=== PATIENT | male | born 1930 | race Caucasian/White ===

== ENCOUNTER 2018-05-17 11:39 | Inpatient (IN) ==
[2018-05-17 12:17] LABS: Basophils % 0.5 % (0.0-0.8); Eosinophils # 0.2 10*3/uL (0.0-0.87); Eosinophils % 3.4 % (0.00-10.9); Hematocrit 34.9 VOL% (42.0-52.0); Hemoglobin 11.6 GM/DL (14.0-18.0); Immature Granulocytes % 0.3 %; Immature Granulocytes Absolute 0.02 #; Lymphocytes # 1.5 10*3/uL (1.4-4.0); Lymphocytes % 24.8 % (21.2-54.2); Mean Corpuscular HGB Conc 33.2 GM/DL (32-36); Mean Corpuscular Hemoglobin 36 PG (27-34); Mean Corpuscular Volume 108.4 FL (87-102); Mean Platelet Volume 9.8 FL (9.6-12.0); Monocytes # 0.5 10*3/uL (0.11-0.8); Monocytes % 8.4 % (1.7-12.7); Neutrophils # 3.9 10*3/uL (1.4-7.4); Neutrophils % 62.6 % (38.7-73.9); Platelet Count 106 T/CUMM (130-400); Red Blood Count 3.22 MC/CUMM (3.8-5.5); Red Cell Distribution Width 13.1 % (9.3-17.3); White Blood Count 6.2 T/CUMM (4-12)
[2018-05-17 12:24] LABS: Partial Thromboplastin Time 38.7 SECS (0-40)
[2018-05-17 12:29] LABS: INR 2.2
[2018-05-17 12:31] LABS: PT Patient Result 22.6 SECS
[2018-05-17 12:32] LABS: Apearance,Urine Slightly Hazy (Clear); Bacteria,Urine Occasional /HPF (Few); Bilirubin,Urine Negative (Negative); Blood, Urine Large mg/dL (Negative); Glucose,Urine (UA) Negative (Negative); Ketones,Urine Negative (Negative); Nitrite,Urine Positive (Negative); Protein,Urine Negative; RBC,Urine 77 /HPF (0-4); Squamous Epithelial Cell,Urine Occasional /HPF (0-10); Urine Color Yellow (Yellow); Urine Specific Gravity 1.008 (1.001-1.035); Urine Urobilinogen < 2.0 EU/DL (0.2-1.0); WBC,Urine 304 /HPF (0-6)
[2018-05-17 12:35] LABS: Alanine Aminotransferase 15 U/L (16-61); Alkaline Phosphatase 74 U/L (45-117); Aspartate Amino Transferase 14 U/L (0-37); Blood Urea Nitrogen 110 MG/DL (7-18); Calcium 8.9 MG/DL (8.5-10.1); Glucose 287 MG/DL (74-106); Osmolality,Calculated 319.7 MOS/KG (273-304); Potassium 3.5 MMOL/L (3.5-5.1); Sodium 138 MMOL/L (136-145); Total Protein 6.5 G/DL (6.4-8.3); Troponin I Only < 0.015 NG/ML (0.00-0.045)
[2018-05-17 16:00] LABS: ABG Base Excess 10.3 MMOL/L (-2.5-2.5); ABG HCO3 33.9 MMOL/L (20-26); ABG Oxygen Saturation 89.6 % (95-100); ABG PCO2 65.2 MM HG (35-48); ABG PH 7.377 (7.35-7.45); ABG PO2 59.4 MM HG (80-95); ABG TCO2 34.1 MMOL/L (23-27); Allen Test Positive
[2018-05-18 05:32] LABS: INR 1.9
[2018-05-18 05:36] LABS: Osmolality,Calculated 319.8 MOS/KG (273-304); Potassium 4.4 MMOL/L (3.5-5.1)
[2018-05-19 05:55] LABS: Basophils % 0.1 % (0.0-0.8); Hematocrit 35.3 VOL% (42.0-52.0); Hemoglobin 11.9 GM/DL (14.0-18.0); Immature Granulocytes % 0.6 %; Immature Granulocytes Absolute 0.05 #; Lymphocytes # 1.2 10*3/uL (1.4-4.0); Lymphocytes % 14.6 % (21.2-54.2); Mean Corpuscular HGB Conc 33.7 GM/DL (32-36); Mean Corpuscular Hemoglobin 36 PG (27-34); Mean Corpuscular Volume 105.7 FL (87-102); Monocytes # 0.6 10*3/uL (0.11-0.8); Monocytes % 7.4 % (1.7-12.7); Neutrophils # 6.6 10*3/uL (1.4-7.4); Neutrophils % 77.3 % (38.7-73.9); Platelet Count 106 T/CUMM (130-400); Red Blood Count 3.34 MC/CUMM (3.8-5.5); Red Cell Distribution Width 12.7 % (9.3-17.3); White Blood Count 8.5 T/CUMM (4-12)
[2018-05-19 06:08] LABS: INR 2.3
[2018-05-19 06:13] LABS: PT Patient Result 23.5 SECS
[2018-05-19 06:24] LABS: Albumin 2.7 G/DL (3.4-5.0); Bilirubin,Total 0.6 MG/DL (0.2-1.0); Calcium 9.3 MG/DL (8.5-10.1); Osmolality,Calculated 312.3 MOS/KG (273-304); Potassium 3.9 MMOL/L (3.5-5.1); Thyroid Stimulating Hormone 1.42 uIU/ml (0.358-3.74); Total Protein 6.4 G/DL (6.4-8.3)
[2018-05-20 02:07] LABS: Hematocrit 35.8 VOL% (42.0-52.0); Hemoglobin 11.8 GM/DL (14.0-18.0); Immature Granulocytes % 0.6 %; Immature Granulocytes Absolute 0.05 #; Lymphocytes # 1.3 10*3/uL (1.4-4.0); Lymphocytes % 16.8 % (21.2-54.2); Mean Corpuscular Hemoglobin 36 PG (27-34); Mean Corpuscular Volume 108.5 FL (87-102); Mean Platelet Volume 9.3 FL (9.6-12.0); Monocytes # 0.7 10*3/uL (0.11-0.8); Monocytes % 8.5 % (1.7-12.7); Neutrophils # 5.8 10*3/uL (1.4-7.4); Neutrophils % 74.1 % (38.7-73.9); Platelet Count 104 T/CUMM (130-400); Red Cell Distribution Width 13.1 % (9.3-17.3); White Blood Count 7.9 T/CUMM (4-12)
[2018-05-20 02:14] LABS: INR 2.6
[2018-05-20 02:20] LABS: PT Patient Result 26.1 SECS
[2018-05-20 02:41] LABS: Calcium 9.2 MG/DL (8.5-10.1); Osmolality,Calculated 317.3 MOS/KG (273-304); Potassium 4.1 MMOL/L (3.5-5.1)
[2018-05-21 06:00] LABS: INR 2.3
[2018-05-21 06:06] LABS: PT Patient Result 23.7 SECS
[2018-05-21 06:10] LABS: Calcium 8.9 MG/DL (8.5-10.1); Potassium 4.1 MMOL/L (3.5-5.1)
[2018-05-22 04:28] LABS: Basophils % 0.2 % (0.0-0.8); Hematocrit 35.8 VOL% (42.0-52.0); Hemoglobin 11.7 GM/DL (14.0-18.0); Immature Granulocytes Absolute 0.13 #; Lymphocytes # 1.1 10*3/uL (1.4-4.0); Lymphocytes % 17.2 % (21.2-54.2); Mean Corpuscular HGB Conc 32.7 GM/DL (32-36); Mean Corpuscular Hemoglobin 35 PG (27-34); Mean Corpuscular Volume 108.2 FL (87-102); Mean Platelet Volume 9.9 FL (9.6-12.0); Monocytes # 0.5 10*3/uL (0.11-0.8); Monocytes % 7.8 % (1.7-12.7); Neutrophils # 4.8 10*3/uL (1.4-7.4); Neutrophils % 72.8 % (38.7-73.9); Platelet Count 117 T/CUMM (130-400); Red Blood Count 3.31 MC/CUMM (3.8-5.5); Red Cell Distribution Width 13.1 % (9.3-17.3); White Blood Count 6.5 T/CUMM (4-12)
[2018-05-22 04:54] LABS: INR 2.2
[2018-05-22 04:56] LABS: PT Patient Result 22.7 SECS
[2018-05-22 05:08] LABS: Albumin 2.6 G/DL (3.4-5.0); Bilirubin,Total 0.5 MG/DL (0.2-1.0); Potassium 3.9 MMOL/L (3.5-5.1); Total Protein 5.9 G/DL (6.4-8.3)
[2018-05-22 06:02] LABS: Thyroid Stimulating Hormone 1.51 uIU/ml (0.358-3.74); Troponin I Only 0.025 NG/ML (0.00-0.045)
[2018-05-23 04:31] LABS: Basophils % 0.1 % (0.0-0.8); Hematocrit 36.2 VOL% (42.0-52.0); Hemoglobin 11.8 GM/DL (14.0-18.0); Immature Granulocytes % 1.8 %; Immature Granulocytes Absolute 0.15 #; Lymphocytes # 1.4 10*3/uL (1.4-4.0); Lymphocytes % 16.3 % (21.2-54.2); Mean Corpuscular HGB Conc 32.6 GM/DL (32-36); Mean Corpuscular Hemoglobin 35 PG (27-34); Mean Corpuscular Volume 108.4 FL (87-102); Mean Platelet Volume 9.8 FL (9.6-12.0); Monocytes # 0.4 10*3/uL (0.11-0.8); Monocytes % 4.6 % (1.7-12.7); NRBC # 0.04 10*3/uL; Neutrophils # 6.5 10*3/uL (1.4-7.4); Neutrophils % 77.2 % (38.7-73.9); Platelet Count 117 T/CUMM (130-400); Red Blood Count 3.34 MC/CUMM (3.8-5.5); Red Cell Distribution Width 13.1 % (9.3-17.3); White Blood Count 8.4 T/CUMM (4-12)
[2018-05-23 04:36] LABS: Calcium 9.1 MG/DL (8.5-10.1); Osmolality,Calculated 312.8 MOS/KG (273-304); Potassium 4.1 MMOL/L (3.5-5.1)
[2018-05-23 04:37] LABS: PT Patient Result 20.1 SECS
[2018-05-24 04:17] LABS: Basophils % 0.1 % (0.0-0.8); Hemoglobin 11.8 GM/DL (14.0-18.0); Immature Granulocytes % 1.4 %; Immature Granulocytes Absolute 0.13 #; Lymphocytes # 1.5 10*3/uL (1.4-4.0); Lymphocytes % 16.1 % (21.2-54.2); Mean Corpuscular HGB Conc 31.9 GM/DL (32-36); Mean Corpuscular Hemoglobin 36 PG (27-34); Mean Corpuscular Volume 112.5 FL (87-102); Mean Platelet Volume 9.9 FL (9.6-12.0); Monocytes # 0.6 10*3/uL (0.11-0.8); Monocytes % 6.5 % (1.7-12.7); NRBC # 0.02 10*3/uL; Neutrophils # 7.3 10*3/uL (1.4-7.4); Neutrophils % 75.9 % (38.7-73.9); Platelet Count 116 T/CUMM (130-400); Red Blood Count 3.29 MC/CUMM (3.8-5.5); Red Cell Distribution Width 13.2 % (9.3-17.3); White Blood Count 9.6 T/CUMM (4-12)
[2018-05-24 04:23] LABS: INR 1.8; PT Patient Result 18.6 SECS
[2018-05-24 04:52] LABS: Calcium 9.1 MG/DL (8.5-10.1); Potassium 4.1 MMOL/L (3.5-5.1)
[2018-05-25 04:34] LABS: INR 1.9; PT Patient Result 19.9 SECS
[2018-05-25 04:35] LABS: Basophils % 0.1 % (0.0-0.8); Hematocrit 36.2 VOL% (42.0-52.0); Hemoglobin 11.9 GM/DL (14.0-18.0); Immature Granulocytes % 0.7 %; Immature Granulocytes Absolute 0.14 #; Lymphocytes # 1.1 10*3/uL (1.4-4.0); Lymphocytes % 5.4 % (21.2-54.2); Mean Corpuscular HGB Conc 32.9 GM/DL (32-36); Mean Corpuscular Hemoglobin 36 PG (27-34); Mean Corpuscular Volume 109.7 FL (87-102); Monocytes # 0.8 10*3/uL (0.11-0.8); Monocytes % 3.9 % (1.7-12.7); Neutrophils # 17.5 10*3/uL (1.4-7.4); Neutrophils % 89.9 % (38.7-73.9); Platelet Count 124 T/CUMM (130-400); Red Cell Distribution Width 13.2 % (9.3-17.3); White Blood Count 19.5 T/CUMM (4-12)
[2018-05-25 06:00] LABS: Calcium 8.5 MG/DL (8.5-10.1); Potassium 3.7 MMOL/L (3.5-5.1)
[2018-05-25 06:09] LABS: Osmolality,Calculated 292.1 MOS/KG (273-304)
[2018-05-26 05:57] LABS: Basophils % 0.1 % (0.0-0.8); Hematocrit 35.8 VOL% (42.0-52.0); Hemoglobin 11.7 GM/DL (14.0-18.0); Lymphocytes % 3.5 % (21.2-54.2); Mean Corpuscular HGB Conc 32.7 GM/DL (32-36); Mean Corpuscular Hemoglobin 36 PG (27-34); Mean Corpuscular Volume 109.1 FL (87-102); Mean Platelet Volume 9.6 FL (9.6-12.0); Neutrophils % 90.4 % (38.7-73.9); Platelet Count 109 T/CUMM (130-400); Red Blood Count 3.28 MC/CUMM (3.8-5.5); Red Cell Distribution Width 13.6 % (9.3-17.3); White Blood Count 22.4 T/CUMM (4-12)
[2018-05-26 05:58] LABS: Immature Granulocytes Absolute 0.22 #; Lymphocytes # 0.8 10*3/uL (1.4-4.0); Monocytes # 1.1 10*3/uL (0.11-0.8); Neutrophils # 20.2 10*3/uL (1.4-7.4)
[2018-05-26 06:09] LABS: PT Patient Result 20.9 SECS
[2018-05-26 06:23] LABS: Calcium 8.6 MG/DL (8.5-10.1); Osmolality,Calculated 305.1 MOS/KG (273-304); Potassium 4.1 MMOL/L (3.5-5.1)
[2018-05-26 06:24] LABS: Hypochromasia 1+; Lymphocytes 4 % (20-55); Ovalocytes Slight; Platelet Estimate Decreased; Segmented Neutrophils 94 % (50-85); Total Cells Counted 100
[2018-05-27 06:17] LABS: Basophils % 0.1 % (0.0-0.8); Hematocrit 35.2 VOL% (42.0-52.0); Hemoglobin 11.3 GM/DL (14.0-18.0); Immature Granulocytes % 0.8 %; Lymphocytes # 0.7 10*3/uL (1.4-4.0); Lymphocytes % 5.6 % (21.2-54.2); Mean Corpuscular HGB Conc 32.1 GM/DL (32-36); Mean Corpuscular Hemoglobin 36 PG (27-34); Mean Platelet Volume 9.7 FL (9.6-12.0); Monocytes # 0.5 10*3/uL (0.11-0.8); Monocytes % 4.3 % (1.7-12.7); Neutrophils # 10.9 10*3/uL (1.4-7.4); Neutrophils % 89.2 % (38.7-73.9); Platelet Count 107 T/CUMM (130-400); Red Blood Count 3.17 MC/CUMM (3.8-5.5); Red Cell Distribution Width 13.3 % (9.3-17.3); White Blood Count 12.2 T/CUMM (4-12)
[2018-05-27 06:20] LABS: INR 1.8; PT Patient Result 18.9 SECS
[2018-05-27 06:40] LABS: Hypochromasia 1+; Ovalocytes Slight; Platelet Estimate Decreased
[2018-05-27 06:41] LABS: Calcium 8.6 MG/DL (8.5-10.1); Osmolality,Calculated 306.3 MOS/KG (273-304); Potassium 3.9 MMOL/L (3.5-5.1)
[2018-05-27 10:56] VITALS: BP 143/53
== END 2018-05-27 13:02 | DRG 190 ==
LOC: EDUNIT# → EDBD → N.ED 11:39 → N.EDINP 14:33 → N.CC 14:50 → N.2E 15:16 → N.CC 15:40 → N.3E 05-25 21:40
PROVIDERS: ADMIT Family Medicine; ATTEND Family Medicine

== ENCOUNTER 2018-06-01 02:54 | Inpatient (IN) ==
[2018-06-01] MEDS ORDERED: NOREPINEPHRINE 4 MG/4 ML VIAL IV ONE (03:28)
[2018-06-01] MEDS: NOREPINEPHRINE 8 MG in SODIUM CHLORIDE 0.9% 242 ML IV PRN ×2 (03:37→16:59)
[2018-06-01] MEDS ORDERED: ONDANSETRON 4 MG/2 ML VIAL IV PRN (05:29)
[2018-06-01] MEDS ORDERED: GLUCAGON 1 MG VIAL IM PRN ×2 (05:29→06:54)
[2018-06-01] MEDS ORDERED: DEXTROSE 50% 25 GM/50 ML VIAL IV PRN ×2 (05:29→06:54)
[2018-06-01] MEDS ORDERED: LACTULOSE 20 GM/30 ML UDCUP PO PRN (07:43)
[2018-06-01] MEDS ORDERED: ALUMINUM/MAGNES/SIMETH MAX STR 30 ML UDCUP PO PRN (07:43)
[2018-06-01] MEDS ORDERED: AZITHROMYCIN 250 MG TABLET PO SCH (08:00)
[2018-06-01 08:54] LABS: Free T4 (Free Thyroxine) 0.92 NG/DL (0.76-1.46)
[2018-06-01] MEDS: GABAPENTIN 300 MG CAPSULE PO SCH ×3 (09:26→20:43)
[2018-06-01] MEDS: POTASSIUM CHLORIDE 20 MEQ TABLET PO SCH ×3 (09:26→20:42)
[2018-06-01] MEDS: FUROSEMIDE 80 MG TABLET PO SCH (09:26)
[2018-06-01] MEDS: CARVEDILOL 6.25 MG TABLET PO SCH ×2 (09:26→20:42)
[2018-06-01] MEDS: PANTOPRAZOLE 40 MG TABLET PO SCH (09:27)
[2018-06-01] MEDS: NIACIN ER 500 MG TABLET PO SCH (09:27)
[2018-06-01] MEDS: metOLazone 5 MG TABLET PO SCH (09:27)
[2018-06-01] MEDS: methylPREDNISolone SOD SUC 40 MG/1 ML VIAL IV SCH ×2 (09:28→18:36)
[2018-06-01] MEDS: ALBUTEROL/IPRATROPIUM 3 ML NEB RESP TX SCH ×3 (11:45→19:14)
[2018-06-01 13:22] LABS: Calcium 8.7 MG/DL (8.5-10.1); Osmolality,Calculated 317.8 MOS/KG (273-304); Potassium 3.7 MMOL/L (3.5-5.1)
[2018-06-01] MEDS: INSULIN LISPRO 100 UNIT/ML SUBCUT SCH ×4 (13:31→23:04)
[2018-06-01] MEDS: CEFTAROLINE 300 MG in SODIUM CHLORIDE 0.9% 100 ML IV SCH ×2 (13:36→20:56)
[2018-06-01 14:39] LABS: INR 2.4
[2018-06-01 14:46] LABS: PT Patient Result 24.8 SECS
[2018-06-01] MEDS: INSULIN REGULAR 100 UNIT/ML SUBCUT SCH ×3 (16:58→17:10)
[2018-06-01 18:30] LABS: Apearance,Urine CLEAR (Clear); Bacteria,Urine Occasional /HPF (Few); Bilirubin,Urine Negative (Negative); Blood, Urine Large mg/dL (Negative); Glucose,Urine (UA) >=500 mg/dL (Negative); Ketones,Urine Negative (Negative); Nitrite,Urine Negative (Negative); Protein,Urine Negative; RBC,Urine 27 /HPF (0-4); Squamous Epithelial Cell,Urine Occasional /HPF (0-10); Urine Color Straw (Yellow); Urine Specific Gravity 1.006 (1.001-1.035); Urine Urobilinogen < 2.0 EU/DL (0.2-1.0); WBC,Urine 2 /HPF (0-6)
[2018-06-01] MEDS: WARFARIN 7.5 MG TABLET PO SCH (18:36)
[2018-06-01] MEDS ORDERED: INSULIN LISPRO 100 UNIT/ML SUBCUT SCH (20:00)
[2018-06-01] MEDS: INSULIN GLARGINE 100 UNIT/ML SUBCUT SCH (20:39)
[2018-06-01] MEDS: ATORVASTATIN 20 MG TABLET PO SCH (20:47)
[2018-06-01] MEDS: ASPIRIN EC 81 MG TABLET PO SCH (20:47)
[2018-06-01] MEDS ORDERED: INSULIN GLARGINE 100 UNIT/ML SUBCUT SCH (21:00)
[2018-06-02] MEDS: ALBUTEROL/IPRATROPIUM 3 ML NEB RESP TX SCH ×7 (00:10→23:46)
[2018-06-02] MEDS: INSULIN LISPRO 100 UNIT/ML SUBCUT SCH ×7 (01:10→21:35)
[2018-06-02] MEDS: methylPREDNISolone SOD SUC 40 MG/1 ML VIAL IV SCH ×3 (02:43→19:09)
[2018-06-02 03:53] LABS: Basophils % 0.1 % (0.0-0.8); Hematocrit 38.6 VOL% (42.0-52.0); Hemoglobin 12.4 GM/DL (14.0-18.0); Immature Granulocytes % 0.9 %; Immature Granulocytes Absolute 0.08 #; Lymphocytes # 0.7 10*3/uL (1.4-4.0); Lymphocytes % 8.5 % (21.2-54.2); Mean Corpuscular HGB Conc 32.1 GM/DL (32-36); Mean Corpuscular Hemoglobin 35 PG (27-34); Mean Corpuscular Volume 108.1 FL (87-102); Monocytes # 0.3 10*3/uL (0.11-0.8); Neutrophils # 7.6 10*3/uL (1.4-7.4); Neutrophils % 87.5 % (38.7-73.9); Platelet Count 117 T/CUMM (130-400); Red Blood Count 3.57 MC/CUMM (3.8-5.5); Red Cell Distribution Width 12.9 % (9.3-17.3); White Blood Count 8.7 T/CUMM (4-12)
[2018-06-02 04:08] LABS: INR 2.7
[2018-06-02 04:11] LABS: PT Patient Result 27.1 SECS
[2018-06-02 04:14] LABS: Osmolality,Calculated 319.3 MOS/KG (273-304); Potassium 3.4 MMOL/L (3.5-5.1); Risk Ratio 2.11; VLDL CHOLESTEROL 14.6 MG/DL
[2018-06-02 04:15] LABS: Albumin 2.4 G/DL (3.4-5.0); Bilirubin,Total 0.7 MG/DL (0.2-1.0); Calcium 8.5 MG/DL (8.5-10.1); Osmolality,Calculated 317.3 MOS/KG (273-304); Potassium 3.4 MMOL/L (3.5-5.1); Total Protein 6.4 G/DL (6.4-8.3)
[2018-06-02] MEDS: INSULIN REGULAR 100 UNIT/ML SUBCUT SCH (08:14)
[2018-06-02] MEDS: CARVEDILOL 6.25 MG TABLET PO SCH ×2 (09:28→20:25)
[2018-06-02] MEDS: FUROSEMIDE 80 MG TABLET PO SCH (09:29)
[2018-06-02] MEDS: POTASSIUM CHLORIDE 20 MEQ TABLET PO SCH ×3 (09:29→20:25)
[2018-06-02] MEDS: GABAPENTIN 300 MG CAPSULE PO SCH ×3 (09:29→20:25)
[2018-06-02] MEDS: NIACIN ER 500 MG TABLET PO SCH (09:30)
[2018-06-02] MEDS: PANTOPRAZOLE 40 MG TABLET PO SCH (09:30)
[2018-06-02] MEDS: metOLazone 5 MG TABLET PO SCH (09:31)
[2018-06-02] MEDS: INSULIN GLARGINE 100 UNIT/ML SUBCUT SCH ×2 (09:41→20:26)
[2018-06-02] MEDS: CEFTAROLINE 300 MG in SODIUM CHLORIDE 0.9% 100 ML IV SCH ×2 (10:31→20:30)
[2018-06-02] MEDS: NOREPINEPHRINE 8 MG in SODIUM CHLORIDE 0.9% 242 ML IV PRN (14:48)
[2018-06-02] MEDS: WARFARIN 7.5 MG TABLET PO SCH (19:05)
[2018-06-02] MEDS: ATORVASTATIN 20 MG TABLET PO SCH (20:25)
[2018-06-02] MEDS: ASPIRIN EC 81 MG TABLET PO SCH (20:26)
[2018-06-03] MEDS: methylPREDNISolone SOD SUC 40 MG/1 ML VIAL IV SCH ×3 (01:57→17:09)
[2018-06-03] MEDS: INSULIN LISPRO 100 UNIT/ML SUBCUT SCH ×5 (01:57→17:09)
[2018-06-03] MEDS: ALBUTEROL/IPRATROPIUM 3 ML NEB RESP TX SCH ×6 (03:10→23:14)
[2018-06-03 05:41] LABS: Basophils % 0.1 % (0.0-0.8); Hemoglobin 12.4 GM/DL (14.0-18.0); Immature Granulocytes % 0.5 %; Immature Granulocytes Absolute 0.09 #; Lymphocytes # 0.9 10*3/uL (1.4-4.0); Lymphocytes % 5.6 % (21.2-54.2); Mean Corpuscular HGB Conc 32.6 GM/DL (32-36); Mean Corpuscular Hemoglobin 35 PG (27-34); Mean Corpuscular Volume 107.3 FL (87-102); Monocytes # 0.6 10*3/uL (0.11-0.8); Monocytes % 3.3 % (1.7-12.7); Neutrophils # 14.9 10*3/uL (1.4-7.4); Neutrophils % 90.5 % (38.7-73.9); Platelet Count 138 T/CUMM (130-400); Red Blood Count 3.54 MC/CUMM (3.8-5.5); Red Cell Distribution Width 12.9 % (9.3-17.3); White Blood Count 16.5 T/CUMM (4-12)
[2018-06-03 05:54] LABS: INR 4.6; PT Patient Result 45.6 SECS
[2018-06-03 06:15] LABS: Calcium 8.5 MG/DL (8.5-10.1); Osmolality,Calculated 316.3 MOS/KG (273-304); Potassium 3.5 MMOL/L (3.5-5.1)
[2018-06-03 06:17] LABS: Albumin 2.2 G/DL (3.4-5.0); Bilirubin,Total 0.7 MG/DL (0.2-1.0); Osmolality,Calculated 317.3 MOS/KG (273-304); Potassium 3.5 MMOL/L (3.5-5.1)
[2018-06-03] MEDS: INSULIN GLARGINE 100 UNIT/ML SUBCUT SCH ×2 (09:56→22:20)
[2018-06-03] MEDS: NIACIN ER 500 MG TABLET PO SCH (09:56)
[2018-06-03] MEDS: GABAPENTIN 300 MG CAPSULE PO SCH ×3 (09:57→21:35)
[2018-06-03] MEDS: CARVEDILOL 6.25 MG TABLET PO SCH ×2 (09:57→21:35)
[2018-06-03] MEDS: metOLazone 5 MG TABLET PO SCH (09:57)
[2018-06-03] MEDS: POTASSIUM CHLORIDE 20 MEQ TABLET PO SCH ×3 (09:57→21:35)
[2018-06-03] MEDS: FUROSEMIDE 80 MG TABLET PO SCH (09:57)
[2018-06-03] MEDS: PANTOPRAZOLE 40 MG TABLET PO SCH (09:57)
[2018-06-03] MEDS: CEFTAROLINE 300 MG in SODIUM CHLORIDE 0.9% 100 ML IV SCH ×2 (09:57→21:43)
[2018-06-03] MEDS: NOREPINEPHRINE 8 MG in SODIUM CHLORIDE 0.9% 242 ML IV PRN (17:24)
[2018-06-03] MEDS: ATORVASTATIN 20 MG TABLET PO SCH (21:35)
[2018-06-03] MEDS: ASPIRIN EC 81 MG TABLET PO SCH (21:35)
[2018-06-04] MEDS: INSULIN LISPRO 100 UNIT/ML SUBCUT SCH ×7 (00:14→23:54)
[2018-06-04] MEDS: methylPREDNISolone SOD SUC 40 MG/1 ML VIAL IV SCH ×3 (00:14→16:08)
[2018-06-04] MEDS: ALBUTEROL/IPRATROPIUM 3 ML NEB RESP TX SCH ×5 (03:31→19:25)
[2018-06-04 05:54] LABS: Basophils % 0.1 % (0.0-0.8); Hematocrit 37.1 VOL% (42.0-52.0); Hemoglobin 12.3 GM/DL (14.0-18.0); Immature Granulocytes % 0.9 %; Lymphocytes # 0.7 10*3/uL (1.4-4.0); Lymphocytes % 6.3 % (21.2-54.2); Mean Corpuscular HGB Conc 33.2 GM/DL (32-36); Mean Corpuscular Hemoglobin 35 PG (27-34); Mean Corpuscular Volume 105.7 FL (87-102); Mean Platelet Volume 9.8 FL (9.6-12.0); Monocytes # 0.3 10*3/uL (0.11-0.8); Monocytes % 2.8 % (1.7-12.7); Neutrophils # 10.6 10*3/uL (1.4-7.4); Neutrophils % 89.9 % (38.7-73.9); Platelet Count 119 T/CUMM (130-400); Red Blood Count 3.51 MC/CUMM (3.8-5.5); Red Cell Distribution Width 13.3 % (9.3-17.3); White Blood Count 11.7 T/CUMM (4-12)
[2018-06-04 06:08] LABS: Calcium 8.4 MG/DL (8.5-10.1); Osmolality,Calculated 321.1 MOS/KG (273-304); Potassium 3.7 MMOL/L (3.5-5.1)
[2018-06-04 06:12] LABS: PT Patient Result 53.2 SECS
[2018-06-04 06:14] LABS: INR 5.4
[2018-06-04] MEDS ORDERED: MEPERIDINE 50 MG/1 ML VIAL IM ONE (07:00)
[2018-06-04] MEDS ORDERED: PROMETHAZINE 25 MG/1 ML VIAL IM ONE (07:00)
[2018-06-04] MEDS ORDERED: LIDOCAINE 2% 20 ML VIAL RESP TX ONE (07:30)
[2018-06-04] MEDS ORDERED: LIDOCAINE 2% VISCOUS 100 ML BOTTLE SWISH/SPIT ONE (07:30)
[2018-06-04] MEDS ORDERED: LIDOCAINE 1% 20 ML VIAL MISC INJ ONE (07:30)
[2018-06-04] MEDS: NIACIN ER 500 MG TABLET PO SCH (08:30)
[2018-06-04] MEDS: PANTOPRAZOLE 40 MG TABLET PO SCH (08:30)
[2018-06-04] MEDS: metOLazone 5 MG TABLET PO SCH (08:31)
[2018-06-04] MEDS: INSULIN GLARGINE 100 UNIT/ML SUBCUT SCH ×2 (08:31→21:12)
[2018-06-04] MEDS: POTASSIUM CHLORIDE 20 MEQ TABLET PO SCH ×3 (08:31→21:11)
[2018-06-04] MEDS: FUROSEMIDE 80 MG TABLET PO SCH (09:27)
[2018-06-04] MEDS: CARVEDILOL 6.25 MG TABLET PO SCH ×2 (09:27→21:11)
[2018-06-04] MEDS: GABAPENTIN 300 MG CAPSULE PO SCH ×3 (09:28→21:11)
[2018-06-04] MEDS: CEFTAROLINE 300 MG in SODIUM CHLORIDE 0.9% 100 ML IV SCH ×2 (09:28→21:40)
[2018-06-04] MEDS: ATORVASTATIN 20 MG TABLET PO SCH (21:11)
[2018-06-04] MEDS: ASPIRIN EC 81 MG TABLET PO SCH (21:11)
[2018-06-05] MEDS: ALBUTEROL/IPRATROPIUM 3 ML NEB RESP TX SCH ×7 (00:21→23:36)
[2018-06-05] MEDS: methylPREDNISolone SOD SUC 40 MG/1 ML VIAL IV SCH ×3 (01:32→16:39)
[2018-06-05 04:24] LABS: Basophils % 0.1 % (0.0-0.8); Eosinophils % 0.1 % (0.00-10.9); Hematocrit 36.4 VOL% (42.0-52.0); Immature Granulocytes % 0.8 %; Lymphocytes # 0.8 10*3/uL (1.4-4.0); Lymphocytes % 6.5 % (21.2-54.2); Mean Corpuscular Hemoglobin 35 PG (27-34); Mean Corpuscular Volume 106.4 FL (87-102); Mean Platelet Volume 10.9 FL (9.6-12.0); Monocytes # 0.6 10*3/uL (0.11-0.8); Monocytes % 4.5 % (1.7-12.7); Neutrophils # 11.3 10*3/uL (1.4-7.4); Platelet Count 89 T/CUMM (130-400); Red Blood Count 3.42 MC/CUMM (3.8-5.5); Red Cell Distribution Width 13.5 % (9.3-17.3); White Blood Count 12.8 T/CUMM (4-12)
[2018-06-05 04:37] LABS: Calcium 9.2 MG/DL (8.5-10.1); Potassium 4.5 MMOL/L (3.5-5.1)
[2018-06-05] MEDS: INSULIN LISPRO 100 UNIT/ML SUBCUT SCH ×5 (04:43→21:19)
[2018-06-05 04:51] LABS: PT Patient Result 52.3 SECS
[2018-06-05 04:53] LABS: INR 5.3
[2018-06-05 05:39] LABS: Lymphocytes 8 % (20-55); Platelet Estimate Decreased; Segmented Neutrophils 90 % (50-85); Total Cells Counted 100
[2018-06-05] MEDS: INSULIN GLARGINE 100 UNIT/ML SUBCUT SCH ×2 (09:06→21:20)
[2018-06-05] MEDS: CARVEDILOL 6.25 MG TABLET PO SCH ×2 (09:07→21:21)
[2018-06-05] MEDS: NIACIN ER 500 MG TABLET PO SCH (09:07)
[2018-06-05] MEDS: PANTOPRAZOLE 40 MG TABLET PO SCH (09:07)
[2018-06-05] MEDS: POTASSIUM CHLORIDE 20 MEQ TABLET PO SCH ×3 (09:07→21:21)
[2018-06-05] MEDS: FUROSEMIDE 80 MG TABLET PO SCH (09:07)
[2018-06-05] MEDS: CEFTAROLINE 300 MG in SODIUM CHLORIDE 0.9% 100 ML IV SCH ×2 (09:12→23:50)
[2018-06-05] MEDS: metOLazone 5 MG TABLET PO SCH (09:19)
[2018-06-05] MEDS: GABAPENTIN 300 MG CAPSULE PO SCH ×3 (09:19→21:21)
[2018-06-05] MEDS: ATORVASTATIN 20 MG TABLET PO SCH (21:21)
[2018-06-05] MEDS: ASPIRIN EC 81 MG TABLET PO SCH (21:21)
[2018-06-06] MEDS: methylPREDNISolone SOD SUC 40 MG/1 ML VIAL IV SCH ×3 (01:04→16:38)
[2018-06-06] MEDS: INSULIN LISPRO 100 UNIT/ML SUBCUT SCH ×6 (01:04→20:31)
[2018-06-06 03:39] LABS: Basophils % 0.1 % (0.0-0.8); Hematocrit 36.5 VOL% (42.0-52.0); Immature Granulocytes % 1.1 %; Lymphocytes # 0.6 10*3/uL (1.4-4.0); Lymphocytes % 6.7 % (21.2-54.2); Mean Corpuscular HGB Conc 32.9 GM/DL (32-36); Mean Corpuscular Hemoglobin 35 PG (27-34); Mean Corpuscular Volume 106.1 FL (87-102); Mean Platelet Volume 9.8 FL (9.6-12.0); Monocytes # 0.4 10*3/uL (0.11-0.8); Monocytes % 4.4 % (1.7-12.7); NRBC # 0.02 10*3/uL; Neutrophils # 7.7 10*3/uL (1.4-7.4); Neutrophils % 87.7 % (38.7-73.9); Platelet Count 77 T/CUMM (130-400); Red Blood Count 3.44 MC/CUMM (3.8-5.5); Red Cell Distribution Width 13.3 % (9.3-17.3); White Blood Count 8.8 T/CUMM (4-12)
[2018-06-06 03:59] LABS: PT Patient Result 55.4 SECS
[2018-06-06 04:00] LABS: INR 5.6
[2018-06-06 04:24] LABS: Calcium 8.8 MG/DL (8.5-10.1); Osmolality,Calculated 318.1 MOS/KG (273-304); Potassium 3.8 MMOL/L (3.5-5.1)
[2018-06-06 04:37] LABS: Macrocytosis 1+
[2018-06-06 04:38] LABS: Poikilocytosis 1+
[2018-06-06] MEDS: ALBUTEROL/IPRATROPIUM 3 ML NEB RESP TX SCH ×6 (05:19→23:01)
[2018-06-06] MEDS: DORNASE ALFA 2.5 MG/2.5 ML VIAL RESP TX SCH ×2 (06:48→19:15)
[2018-06-06] MEDS: GABAPENTIN 300 MG CAPSULE PO SCH ×3 (09:16→20:32)
[2018-06-06] MEDS: NIACIN ER 500 MG TABLET PO SCH (09:16)
[2018-06-06] MEDS: FUROSEMIDE 80 MG TABLET PO SCH (09:16)
[2018-06-06] MEDS: INSULIN GLARGINE 100 UNIT/ML SUBCUT SCH ×2 (09:17→20:30)
[2018-06-06] MEDS: POTASSIUM CHLORIDE 20 MEQ TABLET PO SCH ×3 (09:17→20:32)
[2018-06-06] MEDS: PANTOPRAZOLE 40 MG TABLET PO SCH (09:17)
[2018-06-06] MEDS: CARVEDILOL 6.25 MG TABLET PO SCH ×2 (09:17→20:35)
[2018-06-06] MEDS: CEFTAROLINE 300 MG in SODIUM CHLORIDE 0.9% 100 ML IV SCH ×2 (09:45→20:32)
[2018-06-06] MEDS: ATORVASTATIN 20 MG TABLET PO SCH (20:32)
[2018-06-06] MEDS: ASPIRIN EC 81 MG TABLET PO SCH (20:32)
[2018-06-07] MEDS: INSULIN LISPRO 100 UNIT/ML SUBCUT SCH ×6 (00:01→20:51)
[2018-06-07] MEDS: methylPREDNISolone SOD SUC 40 MG/1 ML VIAL IV SCH ×3 (00:02→16:41)
[2018-06-07] MEDS: ALBUTEROL/IPRATROPIUM 3 ML NEB RESP TX SCH ×6 (02:34→23:06)
[2018-06-07 04:05] LABS: Basophils % 0.1 % (0.0-0.8); Hematocrit 36.1 VOL% (42.0-52.0); Immature Granulocytes % 1.3 %; Lymphocytes # 0.6 10*3/uL (1.4-4.0); Lymphocytes % 7.6 % (21.2-54.2); Mean Corpuscular HGB Conc 33.2 GM/DL (32-36); Mean Corpuscular Hemoglobin 35 PG (27-34); Mean Corpuscular Volume 105.6 FL (87-102); Monocytes # 0.3 10*3/uL (0.11-0.8); Monocytes % 4.1 % (1.7-12.7); NRBC # 0.02 10*3/uL; Neutrophils # 6.8 10*3/uL (1.4-7.4); Neutrophils % 86.9 % (38.7-73.9); Platelet Count 76 T/CUMM (130-400); Red Blood Count 3.42 MC/CUMM (3.8-5.5); Red Cell Distribution Width 13.2 % (9.3-17.3); White Blood Count 7.8 T/CUMM (4-12)
[2018-06-07 04:11] LABS: INR 3.6
[2018-06-07 04:32] LABS: Osmolality,Calculated 316.1 MOS/KG (273-304); Potassium 3.8 MMOL/L (3.5-5.1)
[2018-06-07 05:09] LABS: Hypochromasia 1+; Macrocytosis Slight; Ovalocytes Slight; Platelet Estimate Decreased
[2018-06-07 06:17] LABS: PT Patient Result 36.2 SECS
[2018-06-07] MEDS: DORNASE ALFA 2.5 MG/2.5 ML VIAL RESP TX SCH ×2 (07:48→19:28)
[2018-06-07] MEDS: NIACIN ER 500 MG TABLET PO SCH (08:26)
[2018-06-07] MEDS: PANTOPRAZOLE 40 MG TABLET PO SCH (08:26)
[2018-06-07] MEDS: GABAPENTIN 300 MG CAPSULE PO SCH ×3 (08:26→20:53)
[2018-06-07] MEDS: FUROSEMIDE 80 MG TABLET PO SCH (08:27)
[2018-06-07] MEDS: INSULIN GLARGINE 100 UNIT/ML SUBCUT SCH ×2 (08:28→20:50)
[2018-06-07] MEDS: POTASSIUM CHLORIDE 20 MEQ TABLET PO SCH ×3 (08:40→20:53)
[2018-06-07] MEDS: CARVEDILOL 6.25 MG TABLET PO SCH ×2 (08:40→20:53)
[2018-06-07] MEDS: CEFTAROLINE 300 MG in SODIUM CHLORIDE 0.9% 100 ML IV SCH ×2 (09:00→22:00)
[2018-06-07] MEDS: ATORVASTATIN 20 MG TABLET PO SCH (20:52)
[2018-06-07] MEDS: ASPIRIN EC 81 MG TABLET PO SCH (20:53)
[2018-06-08] MEDS: methylPREDNISolone SOD SUC 40 MG/1 ML VIAL IV SCH ×3 (00:33→16:15)
[2018-06-08] MEDS: INSULIN LISPRO 100 UNIT/ML SUBCUT SCH ×6 (00:34→23:10)
[2018-06-08] MEDS: ALBUTEROL/IPRATROPIUM 3 ML NEB RESP TX SCH ×5 (03:15→19:32)
[2018-06-08 04:11] LABS: Basophils % 0.1 % (0.0-0.8); Hematocrit 37.6 VOL% (42.0-52.0); Hemoglobin 12.3 GM/DL (14.0-18.0); Immature Granulocytes % 0.4 %; Immature Granulocytes Absolute 0.06 #; Lymphocytes # 0.5 10*3/uL (1.4-4.0); Lymphocytes % 3.4 % (21.2-54.2); Mean Corpuscular HGB Conc 32.7 GM/DL (32-36); Mean Corpuscular Hemoglobin 35 PG (27-34); Mean Corpuscular Volume 107.1 FL (87-102); Mean Platelet Volume 10.1 FL (9.6-12.0); Monocytes # 0.4 10*3/uL (0.11-0.8); Monocytes % 2.8 % (1.7-12.7); Neutrophils # 13.6 10*3/uL (1.4-7.4); Neutrophils % 93.3 % (38.7-73.9); Platelet Count 79 T/CUMM (130-400); Red Blood Count 3.51 MC/CUMM (3.8-5.5); Red Cell Distribution Width 13.4 % (9.3-17.3); White Blood Count 14.5 T/CUMM (4-12)
[2018-06-08 04:40] LABS: Osmolality,Calculated 318.1 MOS/KG (273-304); Potassium 4.3 MMOL/L (3.5-5.1)
[2018-06-08 04:54] LABS: Hypochromasia 1+; Lymphocytes 1 % (20-55); Ovalocytes Slight; Platelet Estimate Decreased; Segmented Neutrophils 96 % (50-85); Total Cells Counted 100
[2018-06-08 04:55] LABS: Macrocytosis Slight
[2018-06-08] MEDS: PANTOPRAZOLE 40 MG TABLET PO SCH (09:00)
[2018-06-08] MEDS: GABAPENTIN 300 MG CAPSULE PO SCH ×3 (09:00→22:02)
[2018-06-08] MEDS: NIACIN ER 500 MG TABLET PO SCH (09:00)
[2018-06-08] MEDS: POTASSIUM CHLORIDE 20 MEQ TABLET PO SCH ×3 (09:00→22:03)
[2018-06-08] MEDS: CARVEDILOL 6.25 MG TABLET PO SCH ×2 (09:00→22:02)
[2018-06-08] MEDS: FUROSEMIDE 80 MG TABLET PO SCH (09:00)
[2018-06-08] MEDS: INSULIN GLARGINE 100 UNIT/ML SUBCUT SCH ×2 (09:00→22:22)
[2018-06-08] MEDS: CEFTAROLINE 300 MG in SODIUM CHLORIDE 0.9% 100 ML IV SCH ×2 (09:15→22:29)
[2018-06-08] MEDS: DORNASE ALFA 2.5 MG/2.5 ML VIAL RESP TX SCH ×2 (10:10→19:40)
[2018-06-08] MEDS: ASPIRIN EC 81 MG TABLET PO SCH (22:02)
[2018-06-08] MEDS: ATORVASTATIN 20 MG TABLET PO SCH (22:03)
[2018-06-09] MEDS: ALBUTEROL/IPRATROPIUM 3 ML NEB RESP TX SCH ×7 (00:12→23:25)
[2018-06-09] MEDS: methylPREDNISolone SOD SUC 40 MG/1 ML VIAL IV SCH ×3 (00:43→16:24)
[2018-06-09 02:59] LABS: INR 2.3
[2018-06-09 03:22] LABS: Calcium 8.7 MG/DL (8.5-10.1); Osmolality,Calculated 315.8 MOS/KG (273-304); Potassium 4.4 MMOL/L (3.5-5.1)
[2018-06-09 03:48] LABS: PT Patient Result 23.4 SECS
[2018-06-09] MEDS: DORNASE ALFA 2.5 MG/2.5 ML VIAL RESP TX SCH ×2 (07:21→20:08)
[2018-06-09] MEDS: INSULIN GLARGINE 100 UNIT/ML SUBCUT SCH ×2 (08:43→21:44)
[2018-06-09] MEDS: GABAPENTIN 300 MG CAPSULE PO SCH ×3 (08:44→21:42)
[2018-06-09] MEDS: INSULIN LISPRO 100 UNIT/ML SUBCUT SCH ×4 (08:44→21:44)
[2018-06-09] MEDS: NIACIN ER 500 MG TABLET PO SCH (08:45)
[2018-06-09] MEDS: FUROSEMIDE 80 MG TABLET PO SCH (08:45)
[2018-06-09] MEDS: CARVEDILOL 6.25 MG TABLET PO SCH ×2 (08:45→21:44)
[2018-06-09] MEDS: POTASSIUM CHLORIDE 20 MEQ TABLET PO SCH ×3 (08:45→21:42)
[2018-06-09] MEDS: PANTOPRAZOLE 40 MG TABLET PO SCH (08:45)
[2018-06-09] MEDS: CEFTAROLINE 300 MG in SODIUM CHLORIDE 0.9% 100 ML IV SCH ×2 (09:56→21:50)
[2018-06-09] MEDS ORDERED: WARFARIN 5 MG TABLET PO SCH (18:00)
[2018-06-09] MEDS: ATORVASTATIN 20 MG TABLET PO SCH (21:42)
[2018-06-09] MEDS: ASPIRIN EC 81 MG TABLET PO SCH (21:44)
[2018-06-10] MEDS: methylPREDNISolone SOD SUC 40 MG/1 ML VIAL IV SCH ×2 (00:45→08:00)
[2018-06-10] MEDS: ALBUTEROL/IPRATROPIUM 3 ML NEB RESP TX SCH ×6 (03:46→23:45)
[2018-06-10 04:13] LABS: Basophils % 0.2 % (0.0-0.8); Hematocrit 34.9 VOL% (42.0-52.0); Hemoglobin 11.5 GM/DL (14.0-18.0); Immature Granulocytes % 0.9 %; Immature Granulocytes Absolute 0.18 #; Lymphocytes # 0.5 10*3/uL (1.4-4.0); Lymphocytes % 2.3 % (21.2-54.2); Mean Corpuscular Hemoglobin 35 PG (27-34); Mean Corpuscular Volume 106.7 FL (87-102); Mean Platelet Volume 10.2 FL (9.6-12.0); Monocytes # 0.9 10*3/uL (0.11-0.8); Monocytes % 4.7 % (1.7-12.7); Neutrophils # 18.3 10*3/uL (1.4-7.4); Neutrophils % 91.9 % (38.7-73.9); Platelet Count 70 T/CUMM (130-400); Red Blood Count 3.27 MC/CUMM (3.8-5.5); Red Cell Distribution Width 13.5 % (9.3-17.3); White Blood Count 19.9 T/CUMM (4-12)
[2018-06-10 04:18] LABS: INR 1.8; PT Patient Result 18.7 SECS
[2018-06-10 04:36] LABS: Calcium 8.7 MG/DL (8.5-10.1); Osmolality,Calculated 314.3 MOS/KG (273-304); Potassium 4.3 MMOL/L (3.5-5.1)
[2018-06-10 04:44] LABS: Band Neutrophils 2 % (0-10); Hypochromasia 1+; Lymphocytes 1 % (20-55); Macrocytosis Slight; Ovalocytes Slight; Platelet Estimate Decreased; Segmented Neutrophils 95 % (50-85); Total Cells Counted 100
[2018-06-10] MEDS: INSULIN LISPRO 100 UNIT/ML SUBCUT SCH ×4 (07:59→21:51)
[2018-06-10] MEDS: PANTOPRAZOLE 40 MG TABLET PO SCH (08:00)
[2018-06-10] MEDS: INSULIN GLARGINE 100 UNIT/ML SUBCUT SCH ×2 (08:00→21:51)
[2018-06-10] MEDS: NIACIN ER 500 MG TABLET PO SCH (08:00)
[2018-06-10] MEDS: GABAPENTIN 300 MG CAPSULE PO SCH ×3 (08:01→21:50)
[2018-06-10] MEDS: CARVEDILOL 6.25 MG TABLET PO SCH ×2 (08:01→21:51)
[2018-06-10] MEDS: FUROSEMIDE 80 MG TABLET PO SCH (08:01)
[2018-06-10] MEDS: POTASSIUM CHLORIDE 20 MEQ TABLET PO SCH ×3 (08:01→21:51)
[2018-06-10] MEDS: predniSONE 20 MG TABLET PO SCH (08:12)
[2018-06-10] MEDS: WARFARIN 7.5 MG TABLET PO SCH (17:22)
[2018-06-10] MEDS ORDERED: WARFARIN 5 MG TABLET PO SCH (18:00)
[2018-06-10] MEDS: ATORVASTATIN 20 MG TABLET PO SCH (21:51)
[2018-06-10] MEDS: ASPIRIN EC 81 MG TABLET PO SCH (22:00)
[2018-06-11] MEDS: ALBUTEROL/IPRATROPIUM 3 ML NEB RESP TX SCH ×5 (03:39→20:27)
[2018-06-11 05:25] LABS: Basophils % 0.1 % (0.0-0.8); Eosinophils % 0.2 % (0.00-10.9); Hematocrit 33.4 VOL% (42.0-52.0); Hemoglobin 10.8 GM/DL (14.0-18.0); Immature Granulocytes % 0.8 %; Immature Granulocytes Absolute 0.12 #; Lymphocytes # 0.7 10*3/uL (1.4-4.0); Lymphocytes % 4.7 % (21.2-54.2); Mean Corpuscular HGB Conc 32.3 GM/DL (32-36); Mean Corpuscular Hemoglobin 35 PG (27-34); Mean Corpuscular Volume 108.1 FL (87-102); Mean Platelet Volume 9.6 FL (9.6-12.0); Monocytes # 1.3 10*3/uL (0.11-0.8); Monocytes % 8.9 % (1.7-12.7); Neutrophils # 12.5 10*3/uL (1.4-7.4); Neutrophils % 85.3 % (38.7-73.9); Red Blood Count 3.09 MC/CUMM (3.8-5.5); Red Cell Distribution Width 13.6 % (9.3-17.3); White Blood Count 14.7 T/CUMM (4-12)
[2018-06-11 05:28] LABS: Platelet Count 68 T/CUMM (130-400)
[2018-06-11 05:41] LABS: PT Patient Result 20.8 SECS
[2018-06-11 05:47] LABS: Band Neutrophils 9 % (0-10); Lymphocytes 2 % (20-55); Segmented Neutrophils 86 % (50-85); Total Cells Counted 100
[2018-06-11 05:48] LABS: Macrocytosis 1+
[2018-06-11 05:55] LABS: Calcium 8.7 MG/DL (8.5-10.1); Potassium 3.8 MMOL/L (3.5-5.1)
[2018-06-11] MEDS: INSULIN LISPRO 100 UNIT/ML SUBCUT SCH ×4 (08:35→21:00)
[2018-06-11] MEDS: predniSONE 20 MG TABLET PO SCH (08:37)
[2018-06-11] MEDS: GABAPENTIN 300 MG CAPSULE PO SCH ×3 (08:37→21:00)
[2018-06-11] MEDS: CARVEDILOL 6.25 MG TABLET PO SCH ×2 (08:37→20:59)
[2018-06-11] MEDS: INSULIN GLARGINE 100 UNIT/ML SUBCUT SCH ×2 (08:37→21:00)
[2018-06-11] MEDS: FUROSEMIDE 80 MG TABLET PO SCH (08:37)
[2018-06-11] MEDS: POTASSIUM CHLORIDE 20 MEQ TABLET PO SCH ×3 (08:37→20:59)
[2018-06-11] MEDS: NIACIN ER 500 MG TABLET PO SCH (08:37)
[2018-06-11] MEDS: PANTOPRAZOLE 40 MG TABLET PO SCH (08:37)
[2018-06-11] MEDS: WARFARIN 5 MG TABLET PO SCH (18:20)
[2018-06-11] MEDS: ATORVASTATIN 20 MG TABLET PO SCH (20:59)
[2018-06-11] MEDS: ASPIRIN EC 81 MG TABLET PO SCH (21:00)
[2018-06-12] MEDS: ALBUTEROL/IPRATROPIUM 3 ML NEB RESP TX SCH ×7 (00:22→23:02)
[2018-06-12 06:06] LABS: INR 2.1
[2018-06-12 06:11] LABS: PT Patient Result 21.5 SECS
[2018-06-12] MEDS ORDERED: FUROSEMIDE 40 MG/4 ML VIAL IV ONE (08:06)
[2018-06-12] MEDS: CARVEDILOL 6.25 MG TABLET PO SCH ×2 (08:54→20:55)
[2018-06-12] MEDS: predniSONE 20 MG TABLET PO SCH (08:54)
[2018-06-12] MEDS: PANTOPRAZOLE 40 MG TABLET PO SCH (08:54)
[2018-06-12] MEDS: NIACIN ER 500 MG TABLET PO SCH (08:54)
[2018-06-12] MEDS: FUROSEMIDE 80 MG TABLET PO SCH ×2 (08:54→15:42)
[2018-06-12] MEDS: GABAPENTIN 300 MG CAPSULE PO SCH ×3 (08:54→20:54)
[2018-06-12] MEDS: POTASSIUM CHLORIDE 20 MEQ TABLET PO SCH ×3 (08:54→20:54)
[2018-06-12] MEDS: INSULIN LISPRO 100 UNIT/ML SUBCUT SCH ×4 (08:55→20:55)
[2018-06-12] MEDS: INSULIN GLARGINE 100 UNIT/ML SUBCUT SCH ×2 (08:55→20:55)
[2018-06-12] MEDS: WARFARIN 7.5 MG TABLET PO SCH (18:00)
[2018-06-12] MEDS: ASPIRIN EC 81 MG TABLET PO SCH (20:54)
[2018-06-12] MEDS: ATORVASTATIN 20 MG TABLET PO SCH (20:55)
[2018-06-13] MEDS: ALBUTEROL/IPRATROPIUM 3 ML NEB RESP TX SCH ×6 (02:41→23:55)
[2018-06-13 06:27] LABS: Basophils % 0.1 % (0.0-0.8); Eosinophils # 0.1 10*3/uL (0.0-0.87); Eosinophils % 0.6 % (0.00-10.9); Hematocrit 32.9 VOL% (42.0-52.0); Hemoglobin 10.6 GM/DL (14.0-18.0); Immature Granulocytes % 0.6 %; Immature Granulocytes Absolute 0.07 #; Lymphocytes # 0.7 10*3/uL (1.4-4.0); Lymphocytes % 6.1 % (21.2-54.2); Mean Corpuscular HGB Conc 32.2 GM/DL (32-36); Mean Corpuscular Hemoglobin 34 PG (27-34); Mean Corpuscular Volume 106.8 FL (87-102); Mean Platelet Volume 10.3 FL (9.6-12.0); Monocytes # 1.3 10*3/uL (0.11-0.8); Monocytes % 11.3 % (1.7-12.7); Neutrophils # 9.4 10*3/uL (1.4-7.4); Neutrophils % 81.3 % (38.7-73.9); Platelet Count 63 T/CUMM (130-400); Red Blood Count 3.08 MC/CUMM (3.8-5.5); Red Cell Distribution Width 13.8 % (9.3-17.3); White Blood Count 11.6 T/CUMM (4-12)
[2018-06-13 06:38] LABS: INR 2.2
[2018-06-13 06:52] LABS: Platelet Estimate Decreased
[2018-06-13 07:06] LABS: Albumin 2.2 G/DL (3.4-5.0); Calcium 8.4 MG/DL (8.5-10.1); Potassium 3.5 MMOL/L (3.5-5.1)
[2018-06-13 07:28] LABS: PT Patient Result 22.2 SECS
[2018-06-13] MEDS: INSULIN LISPRO 100 UNIT/ML SUBCUT SCH ×4 (09:30→20:11)
[2018-06-13] MEDS: INSULIN GLARGINE 100 UNIT/ML SUBCUT SCH ×2 (09:31→20:10)
[2018-06-13] MEDS: PANTOPRAZOLE 40 MG TABLET PO SCH (09:32)
[2018-06-13] MEDS: FUROSEMIDE 80 MG TABLET PO SCH ×2 (09:32→15:57)
[2018-06-13] MEDS: NIACIN ER 500 MG TABLET PO SCH (09:32)
[2018-06-13] MEDS: predniSONE 20 MG TABLET PO SCH (09:32)
[2018-06-13] MEDS: GABAPENTIN 300 MG CAPSULE PO SCH ×3 (09:32→20:11)
[2018-06-13] MEDS: CARVEDILOL 6.25 MG TABLET PO SCH ×2 (09:32→20:11)
[2018-06-13] MEDS: POTASSIUM CHLORIDE 20 MEQ TABLET PO SCH ×3 (09:33→20:11)
[2018-06-13] MEDS: WARFARIN 5 MG TABLET PO SCH (17:56)
[2018-06-13] MEDS: ASPIRIN EC 81 MG TABLET PO SCH (20:11)
[2018-06-13] MEDS: ATORVASTATIN 20 MG TABLET PO SCH (20:11)
[2018-06-14] MEDS: ALBUTEROL/IPRATROPIUM 3 ML NEB RESP TX SCH ×6 (04:01→23:37)
[2018-06-14 06:05] LABS: INR 2.3
[2018-06-14 06:07] LABS: PT Patient Result 23.4 SECS
[2018-06-14] MEDS: INSULIN LISPRO 100 UNIT/ML SUBCUT SCH ×4 (09:34→20:28)
[2018-06-14] MEDS: predniSONE 20 MG TABLET PO SCH (09:35)
[2018-06-14] MEDS: GABAPENTIN 300 MG CAPSULE PO SCH ×3 (09:35→20:28)
[2018-06-14] MEDS: PANTOPRAZOLE 40 MG TABLET PO SCH (09:35)
[2018-06-14] MEDS: NIACIN ER 500 MG TABLET PO SCH (09:35)
[2018-06-14] MEDS: INSULIN GLARGINE 100 UNIT/ML SUBCUT SCH ×2 (09:35→20:28)
[2018-06-14] MEDS: CARVEDILOL 6.25 MG TABLET PO SCH ×2 (09:35→20:28)
[2018-06-14] MEDS: POTASSIUM CHLORIDE 20 MEQ TABLET PO SCH ×3 (09:35→20:29)
[2018-06-14] MEDS: FUROSEMIDE 80 MG TABLET PO SCH ×2 (09:36→15:11)
[2018-06-14] MEDS: WARFARIN 7.5 MG TABLET PO SCH (17:53)
[2018-06-14] MEDS: ATORVASTATIN 20 MG TABLET PO SCH (20:28)
[2018-06-14] MEDS: ASPIRIN EC 81 MG TABLET PO SCH (20:29)
[2018-06-15] MEDS: ALBUTEROL/IPRATROPIUM 3 ML NEB RESP TX SCH ×3 (02:37→11:20)
[2018-06-15 03:53] LABS: Basophils % 0.1 % (0.0-0.8); Eosinophils % 0.1 % (0.00-10.9); Hematocrit 33.3 VOL% (42.0-52.0); Hemoglobin 10.7 GM/DL (14.0-18.0); Immature Granulocytes % 1.1 %; Lymphocytes # 0.7 10*3/uL (1.4-4.0); Lymphocytes % 7.9 % (21.2-54.2); Mean Corpuscular HGB Conc 32.1 GM/DL (32-36); Mean Corpuscular Hemoglobin 34 PG (27-34); Mean Corpuscular Volume 106.1 FL (87-102); Mean Platelet Volume 10.6 FL (9.6-12.0); Monocytes # 0.9 10*3/uL (0.11-0.8); Monocytes % 9.6 % (1.7-12.7); Neutrophils # 7.3 10*3/uL (1.4-7.4); Neutrophils % 81.2 % (38.7-73.9); Platelet Count 68 T/CUMM (130-400); Red Blood Count 3.14 MC/CUMM (3.8-5.5); Red Cell Distribution Width 13.8 % (9.3-17.3)
[2018-06-15 04:03] LABS: INR 2.4
[2018-06-15 04:08] LABS: PT Patient Result 24.4 SECS
[2018-06-15 04:29] LABS: Macrocytosis 3+; Platelet Estimate Decreased
[2018-06-15 04:31] LABS: Calcium 8.4 MG/DL (8.5-10.1); Osmolality,Calculated 310.3 MOS/KG (273-304); Potassium 4.5 MMOL/L (3.5-5.1)
[2018-06-15 08:10] VITALS: BP 118/69
[2018-06-15] MEDS: INSULIN GLARGINE 100 UNIT/ML SUBCUT SCH (09:21)
[2018-06-15] MEDS: CARVEDILOL 6.25 MG TABLET PO SCH (09:22)
[2018-06-15] MEDS: INSULIN LISPRO 100 UNIT/ML SUBCUT SCH (09:22)
[2018-06-15] MEDS: FUROSEMIDE 80 MG TABLET PO SCH (09:22)
[2018-06-15] MEDS: POTASSIUM CHLORIDE 20 MEQ TABLET PO SCH (09:22)
[2018-06-15] MEDS: GABAPENTIN 300 MG CAPSULE PO SCH (09:22)
[2018-06-15] MEDS: predniSONE 20 MG TABLET PO SCH (09:23)
[2018-06-15] MEDS: PANTOPRAZOLE 40 MG TABLET PO SCH (09:23)
[2018-06-15] MEDS: NIACIN ER 500 MG TABLET PO SCH (09:23)
== END 2018-06-15 12:08 | DRG 291 ==
LOC: EDBD → EDUNIT# → N.ED 02:54 → N.EDINP 05:29 → N.CC 05:46 → N.TELEN 06-08 06:01
PROVIDERS: ADMIT Family Medicine; ATTEND Family Medicine